=== PATIENT | female | born 1965 | race Caucasian/White ===

== ENCOUNTER 2020-01-17 18:39 | Emergency (ER) | payer OTHER ==
[~2020-01-17] VITALS: Ht 152.4 cm; Wt 75.7 kg
[2020-01-17 19:04] VITALS: Ht 152.4 cm; Wt 75.7 kg
[2020-01-17 19:49] LABS: BASOPHIL % 0.4 % (0.2-1.3); PLATELET COUNT 298 x10^3mcL (179-408); RED CELL DISTRIBUTION WIDTH 12.2 % (12.3-17.7)
[2020-01-17 20:39] LABS: CALCIUM 8.8 mg/dL (8.5-10.1); CARBON DIOXIDE 28.1 mmol/L (21-32); CREATININE SERUM 1.2 mg/dL (0.6-1.0); POTASSIUM SERUM 3.4 mmol/L (3.5-5.1)
[2020-01-17 20:44] LABS: BILIRUBIN TOTAL 0.3 mg/dL (0.20-1.00); TOTAL PROTEIN, SERUM 7.8 g/dL (6.4-8.2)
[2020-01-17 23:27] VITALS: BP 140/75
== END 2020-01-17 23:27 | disposition home or self-care (01) ==
LOC: ED 18:39
DX: R07.89 Other chest pain (principal); M54.6 Pain in thoracic spine; R00.2 Palpitations